=== PATIENT | female | born 1985 | race Caucasian/White ===

== ENCOUNTER 2018-11-11 11:45 | Inpatient (IN) | payer OTHER ==
[2018-11-11] MEDS: ELECTROLYTE-148 SOLN 1,000 ML IV SCH (12:30)
[2018-11-11] MEDS ORDERED: CITRIC ACID/SODIUM CITRATE 30 ML UNIT-DOSE CUP PO ONE (12:35)
--- NOTE | 2018-11-11 12:39 | HP ---
Past Medical History - Primary Care Physician PCP:: Karl Joya - Admission Chief Complaint: 39 weeks, previous c/s , labor , request of repeat c/ s History Source: Patient - Past Medical History ...: 3 ...Para: 2 - Past Surgical History Past Surgical History: Yes: Hx Myomectomy: No Hx Transabdominal Cerclage: No - Smoking History Have you smoked in the past 12 months: No - Alcohol/Substance Use Hx Alcohol Use: No History of Substance Use: reports: None - Social History Usual Living Arrangement: Yes: With Spouse History of Recent Travel: No Review of Systems - Review of Systems Constitutional: reports: No Symptoms Eyes: reports: No Symptoms HENT: reports: No Symptoms Neck: reports: No Symptoms Cardiovascular: reports: No Symptoms Respiratory: reports: No Symptoms Gastrointestinal: reports: No Symptoms Genitourinary: reports: No Symptoms Breasts: reports: No Symptoms Reported Musculoskeletal: reports: No Symptoms Integumentary: reports: No Symptoms Neurological: reports: No Symptoms Endocrine: reports: No Symptoms Hematology/Lymphatic: reports: No Symptoms Psychiatric: reports: No Symptoms Physical Exam - Maternity Constitutional: Yes: Well Nourished, No Distress, Calm Eyes: Yes: WNL, Conjunctiva Clear, EOM Intact HENT: Yes: WNL, Atraumatic, Normocephalic Neck: Yes: WNL, Supple, Trachea Midline Cardiovascular: Yes: WNL, Regular Rate and Rhythm Breast(s): Yes: WNL - Abdominal Exam/OB Fundal Height: 38 Number of Fetuses: Single Presentation: Vertex Contractions: Yes Regularity: Irregular Intensity: Mod/Strong Monitor Mode: External Heart Rate Location: LLQ - Vaginal Exam/OB Speculum Exam: No Station: -3 - Physical Exam Musculoskeletal: Yes: WNL Extremities: Yes: WNL Edema: Yes Edema: LLE: Trace, RLE: Trace Deep Tendon Reflex Grade: Normal +2 ...Motor Strength: WNL Psychiatric: Yes: WNL Hemorrhage Risk Assessment - Risk Factors Medium Risk Factors: Yes: Prior , uterine surgery,or multiple laparotomies Risk Score: 1 Risk Level: Medium Risk Problem List - Problems (1) with 39 completed weeks gestation Code(s): Z3A.39 - 39 WEEKS GESTATION OF (2) Previous section complicating Code(s): O34.219 - MATERNAL CARE FOR UNSP TYPE SCAR FROM PREVIOUS DEL (3) Labor established Code(s): ZUO0725 - Assessment/Plan repeat LST c/s, risks associated with repeat c/s explained
[2018-11-11 13:01] VITALS: BMI 26.4
[2018-11-11] MEDS ORDERED: morphine SULFATE/PF 0.5 MG/ML (2cc Syringe - QUVA) EP ONE (13:13)
[2018-11-11] MEDS ORDERED: ONDANSETRON 4 MG/2 ML VIAL IVPUSH PRN (13:13)
[2018-11-11] MEDS ORDERED: morphine SULFATE/PF 0.5 MG/ML (2cc Syringe - QUVA) ONE (13:23)
[2018-11-11] MEDS ORDERED: BENZOCAINE 28 GM HEMORRHOIDAL OINTMENT PR PRN (13:24)
[2018-11-11] MEDS ORDERED: oxyCODONE HCL 5 MG TABLET PO PRN (13:24)
[2018-11-11] MEDS ORDERED: diphenhydrAMINE HCL 25 MG CAPSULE (FP) PO PRN (13:24)
[2018-11-11] MEDS ORDERED: BENZOCAINE 20% 57 GM BOTTLE TP PRN (13:24)
[2018-11-11] MEDS ORDERED: WITCH HAZEL 50% (TUCKS) 40 PAD/JAR PAD TP PRN (13:24)
[2018-11-11] MEDS ORDERED: METHYLERGONOVINE MALEATE 0.2 MG/1 ML AMP IM PRN (13:24)
[2018-11-11] MEDS ORDERED: ceFAZolin SODIUM 1 GM VIAL ONE (13:24)
[2018-11-11] MEDS ORDERED: OXYTOCIN 20 UNITS in 0.9% NS 20 UNIT/1,000 ML INFUS.BAG IV SCH (13:30)
[2018-11-11] MEDS ORDERED: OXYTOCIN 10 UNITS/ML VIAL ONE ×2 (13:48→13:49)
--- NOTE | 2018-11-11 14:29 | SURG ---
Surgery Photo Engraver Note Photo Engraver: Layo Salmon PA-C Date of Service: 11/11/18 Diagnosis: 39 weeks gravid uterus, previous c/s , in labor, request repeat Procedure: section I was present for the entirety of the operative procedure. For further detail, please refer to operative report. Visit type - New patient This patient is new to me today: Yes Date on this admission: 11/11/18
--- NOTE | 2018-11-11 14:50 | OP ---
Operative Note - Note: Operative Date: 11/11/18 Pre-Operative Diagnosis: 39 weeks, labor, previous c/s Operation: repeat LST c/s Findings: live baby bor , 9/9 , ROT, cord around neck once, clear fluid Surgeon: Karl Joya Carpet Installation Specialist: Layo Salmon Anesthesiologist/SECURITY ADMINISTRATOR: Hardeep Granados Anesthesia: Spinal Specimens Removed: placenta Estimated Blood Loss (mls): 500 Drains & Tubes with Location: kahn Blood Volume Replaced (mls): 0 Operative Report Dictated: Yes
[2018-11-11] MEDS ORDERED: OXYTOCIN 20 UNITS in 0.9% NS 20 UNIT/1,000 ML INFUS.BAG IV ONE (14:52)
[2018-11-11] MEDS ORDERED: IBUPROFEN 800 MG/8 ML IJ IVPB ONE (16:00)
[2018-11-11] MEDS: IBUPROFEN 800 MG/8 ML IJ IVPB PRN (16:06)
[2018-11-11] MEDS: CEFAZOLIN 1 GM/D5W 1 GM/50 ML BAG IVPB SCH (17:55)
[2018-11-12] MEDS: CEFAZOLIN 1 GM/D5W 1 GM/50 ML BAG IVPB SCH (01:04)
[2018-11-12] MEDS: IBUPROFEN 800 MG/8 ML IJ IVPB PRN (06:13)
[2018-11-12 07:14] LABS: BASO % 0.2 % (0-2.0); EOS % 0.3 % (0-4.5); HEMATOCRIT 37.1 % (32.4-45.2); HEMOGLOBIN 12.6 GM/dL (10.7-15.3); LYMPH % 9.5 % (8-40); MCH 32.3 pg (25.7-33.7); MCHC 33.9 g/dl (32.0-36.0); MEAN CELL VOLUME 95.3 fl (80-96); MEAN PLT VOLUME 8.3 fl (7.5-11.1); MONO % 5.4 % (3.8-10.2); NEUT % 84.6 % (42.8-82.8); PLATELET COUNT 143 K/MM3 (134-434); RBC 3.89 M/mm3 (3.60-5.2); RDW 13.2 % (11.6-15.6); WHITE BLOOD COUNT 12.4 K/mm3 (4.0-10.0)
--- NOTE | 2018-11-12 07:17 | PN ---
Post Progress Note - Subjective Subjective: c/o pain scale 6/10 not voided yet after kahn is taken out Post Day: 1 Type of Delivery: Repeat C/S Vital Signs: Vital Signs Temperature 97.7 F 11/12/18 06:00 Pulse Rate 89 11/12/18 06:00 Respiratory Rate 18 11/12/18 06:00 Blood Pressure 101/64 11/12/18 06:00 O2 Sat by Pulse Oximetry (%) 100 11/11/18 16:45 Breast Exam: Yes: Soft, Other (BF). No: Engorged Uterus: Yes: Fundus Firm, Fundus below umbilicus, Non-tender Incision: Yes: Dressing dry and intact. No: Oozing Abdomen/GI: Yes: Abdomen soft (BS active ), Tolerating PO (clear fluids). No: Abdominal Distention, Tender, Passing flatus Lochia: Yes: Rubra Lochia, amount: Moderate Extremities: Yes: Calves non-tender (scd in situ ) Perineum: Yes: Intact Activity: Other (not oob yet) Other Findings, Remarks: RS cta i/o 1300/1700 ml Problem List - Problems (1) Status post section routine follow-up Code(s): Z39.2 - ENCOUNTER FOR ROUTINE FOLLOW-UP; Z98.891 - HISTORY OF UTERINE SCAR FROM PREVIOUS SURGERY Assessment/Plan pod #1 rc/section stable Plan today po cbc pending ct po care encourage po fluids, ambulation, deep breathing ex
[2018-11-12] MEDS: ENOXAPARIN NA (PORCINE) 40 MG/0.4 ML DISP.SYRIN SQ SCH (09:21)
--- NOTE | 2018-11-12 10:42 | PN ---
Progress Note (short form) - Note Progress Note: Anesthesia pain Pt seen and exmained S:Alert and awake, comfortable O: Vital Signs Temperature 97.7 F 11/12/18 06:00 Pulse Rate 89 11/12/18 06:00 Respiratory Rate 18 11/12/18 08:00 Blood Pressure 101/64 11/12/18 06:00 O2 Sat by Pulse Oximetry (%) 100 11/11/18 16:45 CBC, BMP 11/12/18 06:49 A/P: Current Active Problems Labor established (Acute) with 39 completed weeks gestation (Acute) Previous section complicating (Acute) Status post section routine follow-up (Acute) s/p c section Doing well post op Continue current care Ganesh Ortiz MD
[2018-11-12] MEDS ORDERED: BISACODYL 10 MG SUPP.RECT RC PRN (13:24)
[2018-11-12] MEDS: IBUPROFEN 600 MG TABLET (FP) PO PRN ×2 (16:13→23:03)
[2018-11-12] MEDS: SIMETHICONE 80 MG TAB.CHEW (FP) PO PRN ×2 (16:13→23:03)
[2018-11-12] MEDS: oxyCODONE HCL 5 MG TABLET PO PRN ×2 (16:14→23:04)
--- NOTE | 2018-11-12 18:44 | OP ---
DATE OF OPERATION: 11/11/2018 PREOPERATIVE DIAGNOSIS: 39 weeks, 2 previous sections, labor and heart rate category 2, for repeat section. POSTOPERATIVE DIAGNOSIS: 39 weeks, 2 previous sections, labor and heart rate category 2, for repeat section. PROCEDURE: Repeat low segment transverse section. SURGEON: Malathi Hutchins M.D. SEAT INSTALLER: Jennie Pulliam ANESTHESIA: Spinal. ANESTHESIOLOGIST: Hardeep Granados M.D. ESTIMATED BLOOD LOSS: 500 mL. FINDINGS: Live baby boy, ROT position, cord around the neck, Apgars 9 and 9. OPERATION: Patient was taken to operating room under good spinal anesthesia. Abdomen and perineum were prepped and draped. Pfannenstiel abdominal skin incision was made. Abdominal wall was cut layer by layer until the peritoneum was exposed and incised. Upon entering the abdominal cavity, the lower uterine segment was identified, and uterovesical fold of the peritoneum was established. The bladder was pushed down. Then with the lower blade of the Jen retractor in the pelvis, a low transverse incision was made. The incision extended laterally. Amniotic sac was entered. Clear fluid. Head delivered. Nasopharynx was suctioned. Cord around the neck x1 reduced. A live baby boy was delivered without any difficulty. Placenta was delivered manually. Uterine cavity was cleaned of all remaining tissue. Uterine incision was closed in 2 layers, the 1st layer with 0 Biosyn continuous suture, the 2nd layer with 0 Biosyn imbricating the 1st layer. Bladder flap was closed with 0 Biosyn continuous suture. Both tubes and ovaries were checked and were normal. No active bleeding was seen. Then abdomen and pelvic cavity several times irrigated, and then peritoneum was closed with 0 Biosyn continuous suture. Muscles were brought together interrupted suture with 0 Biosyn. Fascia was closed with 0 Biosyn continuous sutures. Subcutaneous fat with interrupted sutures 3-0 Vicryl, and the skin was closed with 4-0 Vicryl subcuticular continuous suture. The patient tolerated the procedure well and left the OR in good condition. MALATHI HUTCHINS M.D. [id number]
[2018-11-12] MEDS: ELECTROLYTE-148 SOLN 1,000 ML IV SCH (19:43)
[2018-11-12] MEDS: DEXTROSE 5%-LACTATED RINGERS 1,000 ML IV SCH (19:43)
[2018-11-13] MEDS: IBUPROFEN 600 MG TABLET (FP) PO PRN ×2 (05:29→12:50)
[2018-11-13] MEDS: SIMETHICONE 80 MG TAB.CHEW (FP) PO PRN ×2 (05:29→12:51)
[2018-11-13] MEDS: oxyCODONE HCL 5 MG TABLET PO PRN ×2 (05:30→12:51)
--- NOTE | 2018-11-13 08:33 | DS ---
Physical Examination Vital Signs: Vital Signs Temperature 98.0 F 11/12/18 21:53 Pulse Rate 101 H 11/12/18 21:53 Respiratory Rate 18 11/12/18 21:53 Blood Pressure 107/67 11/12/18 21:53 O2 Sat by Pulse Oximetry (%) 100 11/11/18 16:45 Findings/Remarks: Patient is doing well, ambulating, breast feeding, voiding, tolerating PO, requesting discharge home today Constitutional: Yes: Calm Eyes: Yes: WNL HENT: Yes: Atraumatic Neck: Yes: Supple Cardiovascular: Yes: Regular Rate and Rhythm Respiratory: Yes: Regular Gastrointestinal: Yes: Soft ...Rectal Exam: Yes: Deferred Renal/: Yes: Other Breast(s): Yes: Other Musculoskeletal: Yes: WNL Extremities: Yes: WNL Edema: No Integumentary: Yes: WNL Wound/Incision: Yes: Well Approximated, Sutures Intact Neurological: Yes: Alert, Oriented ...Motor Strength: WNL Psychiatric: Yes: Alert, Oriented Labs: CBC, BMP 11/12/18 06:49 Discharge Summary Reason For Visit: REPEAT Current Active Problems Labor established (Acute) with 39 completed weeks gestation (Acute) Previous section complicating (Acute) Status post section routine follow-up (Acute) Procedures: Principal: RCS Hospital Course: uncomplicated and patient requesting discharge on POD # 2 Condition: Stable - Instructions Diet, Activity, Other Instructions: /PP precautions discussed. Referrals: Robert York MD [Staff Physician] - Disposition: HOME - Home Medications Comprehensive Discharge Medication List: Ambulatory Orders Prenat 115/Iron Fum/Folic/Dss [ 19 Tablet] 1 each PO DAILY 11/11/18 Docusate Sodium [Colace] 100 mg PO BID 7 Days capsule MDD 2 11/13/18 Ibuprofen 600 mg PO Q6H PRN #30 tablet MDD 5 11/13/18 Oxycodone HCl/Acetaminophen [Percocet 5-325 mg Tablet -] 1 tab PO Q6H PRN #20 tab MDD 5 11/13/18
[2018-11-13] MEDS: ENOXAPARIN NA (PORCINE) 40 MG/0.4 ML DISP.SYRIN SQ SCH (09:28)
[2018-11-13 10:55] VITALS: BP 125/81; PULSE 73; TEMP 98.2
[2018-11-13] MEDS ORDERED: SENNOSIDES/DOCUSATE COMBO (SENNA PLUS) TABLET (UD) PO PRN (22:00)
--- NOTE | 2018-11-14 14:20 | PATH ---
Surgical Pathology Report Patient Name: SHANI LOWE [facility]. Rec. #: [id number] /Age/Gender: 1985 (Age: 33) / F Account: [id number] Location: [facility] OBS/PAN HELPER Taken: 11/10/2018 Received: 11/12/2018 Reported: 11/14/2018 Physicians: Karl Joya M.D. Specimen(s) Received PLACENTA Clinical History , 39.1 weeks x2 Final Diagnosis PLACENTA: THIRD TRIMESTER PLACENTA WITH ACUTE CHORIOAMNIONITIS. TRIVASCULAR CORD. Electronically Signed Toyin Marinelli M.D. Gross Description The specimen is received fresh labeled placenta and is a 380 gram, 16 x16 x 2.2cm. placenta with attached membranes and umbilical cord. The attached membranes are glistening, translucent, and insert marginally. The umbilical cord measures 25 cm. in length and averages 1.3 cm. in diameter. The cord inserts centrally, 5 centimeter to the nearest margin. No true knots or strictures are identified. Cut surface of the umbilical cord reveals 3 vessels. Sectioning reveals red-brown, spongy parenchyma. No lesions are identified. [employer] sections are submitted in three cassettes as follows: 1- membrane rolls and umbilical cord; 2-3- full thickness sections of placenta KWS/11/12/2018 sulki/11/12/2018
== END 2018-11-13 15:25 | disposition home or self-care (01) | DRG 540 ==
LOC: JDEL 11:45 → JLDR 12:30 → J3W 16:38
PROVIDERS: ADMIT Obstetrics & Gynecology; ATTEND Obstetrics & Gynecology
PROC: 10D00Z1 Extraction of Products of Conception, Low, Open Approach (ICD-10-PCS; principal; 2018-11-11)
DX: O34.211 Maternal care for low transverse scar from previous cesarean delivery (principal); O69.81X0 Labor and delivery complicated by cord around neck, without compression, not applicable or unspecified; Z3A.39 39 weeks gestation of pregnancy; Z37.0 Single live birth
CPT/HCPCS: 36415; 36600; 80053; 82803; 85025; 86850; 86900; 86901; 88307-TC

== ENCOUNTER 2021-12-06 08:42 | Inpatient (IN) | payer OTHER ==
[2021-12-06] MEDS ORDERED: ELECTROLYTE-148 SOLN 500 ML IV ONE (09:14)
[2021-12-06] MEDS ORDERED: CITRIC ACID/SODIUM CITRATE 30 ML UNIT-DOSE CUP PO ONE (09:14)
[2021-12-06] MEDS ORDERED: ELECTROLYTE-148 SOLN 1,000 ML IV SCH (09:15)
[2021-12-06 09:37] VITALS: BMI 28.5
[2021-12-06] MEDS ORDERED: IBUPROFEN 800 MG/8 ML IJ IVPB PRN (10:00)
[2021-12-06] MEDS ORDERED: IBUPROFEN 600 MG TABLET (FP) PO PRN (10:00)
[2021-12-06] MEDS ORDERED: ACETAMINOPHEN 325 MG TABLET (FP) PO PRN (10:00)
[2021-12-06] MEDS ORDERED: OXYTOCIN 20 UNITS in 0.9% NS 20 UNIT/1,000 ML INFUS.BAG IV ONE (10:26)
[2021-12-06] MEDS ORDERED: OXYTOCIN 30 UNITS in 0.9% NS 30 UNIT/500 ML INFUS.BAG IVPB ONE (10:30)
[2021-12-06] MEDS ORDERED: ceFAZolin SODIUM 1 GM VIAL ONE (10:32)
[2021-12-06] MEDS ORDERED: morphine SULFATE/PF 1 MG/2 ML (2cc Syringe - QUVA) ONE (10:56)
[2021-12-06] MEDS ORDERED: morphine SULFATE/PF 1 MG/2 ML (2cc Syringe - QUVA) IT ONE (11:09)
[2021-12-06] MEDS ORDERED: ONDANSETRON 4 MG/2 ML VIAL ONE (11:15)
[2021-12-06] MEDS ORDERED: METOCLOPRAMIDE HCL INJECTION 10 MG/2 ML VIAL ONE (11:15)
[2021-12-06] MEDS ORDERED: KETOROLAC TROMETHAMINE 30 MG/1 ML VIAL ONE (11:20)
[2021-12-06] MEDS: OXYTOCIN 20 UNITS in 0.9% NS 20 UNIT/1,000 ML INFUS.BAG IV SCH ×2 (12:15→19:53)
[2021-12-06] MEDS ORDERED: ONDANSETRON 4 MG/2 ML VIAL IVPUSH PRN (12:15)
[2021-12-06] MEDS ORDERED: METHYLERGONOVINE MALEATE 0.2 MG/1 ML AMP IM ONE (14:30)
[2021-12-07] MEDS: SIMETHICONE 80 MG TAB.CHEW (FP) PO PRN ×2 (06:07→09:58)
[2021-12-07] MEDS: oxyCODONE HCL 5 MG TABLET PO PRN ×2 (06:07→20:33)
[2021-12-07 08:46] LABS: BASO % 0.2 % (0-2.0); EOS % 0.2 % (0-4.5); HEMATOCRIT 31.3 % (32.4-45.2); HEMOGLOBIN 10.7 GM/dL (10.7-15.3); MCH 32.5 pg (25.7-33.7); MCHC 34.1 g/dl (32.0-36.0); MEAN CELL VOLUME 95.2 fl (80-96); MEAN PLT VOLUME 7.9 fl (7.5-11.1); MONO % 4.6 % (3.8-10.2); PLATELET COUNT 152 10^3/uL (134-434); RBC 3.29 M/mm3 (3.60-5.2); RDW 13.7 % (11.6-15.6); WHITE BLOOD COUNT 13.5 K/mm3 (4.0-10.0)
[2021-12-07] MEDS ORDERED: BISACODYL 10 MG SUPP.RECT RC PRN (10:00)
[2021-12-07] MEDS: OXYTOCIN 20 UNITS in 0.9% NS 20 UNIT/1,000 ML INFUS.BAG IV SCH (13:14)
[2021-12-08] MEDS: oxyCODONE HCL 5 MG TABLET PO PRN ×4 (00:28→21:24)
[2021-12-08] MEDS: SIMETHICONE 80 MG TAB.CHEW (FP) PO PRN ×3 (08:30→21:24)
[2021-12-09] MEDS: oxyCODONE HCL 5 MG TABLET PO PRN ×2 (02:58→08:20)
[2021-12-09] MEDS: SIMETHICONE 80 MG TAB.CHEW (FP) PO PRN ×2 (02:58→08:20)
[2021-12-09 08:04] VITALS: BP 112/80; PULSE 84; RESP 20; TEMP 98.4
[2021-12-09 08:40] LABS: BASO % 0.2 % (0-2.0); EOS % 1.4 % (0-4.5); HEMOGLOBIN 10.4 GM/dL (10.7-15.3); LYMPH % 16.7 % (8-40); MCHC 34.5 g/dl (32.0-36.0); MEAN CELL VOLUME 95.6 fl (80-96); MEAN PLT VOLUME 7.3 fl (7.5-11.1); MONO % 5.9 % (3.8-10.2); NEUT % 75.8 % (42.8-82.8); PLATELET COUNT 160 10^3/uL (134-434); RBC 3.14 M/mm3 (3.60-5.2); RDW 13.7 % (11.6-15.6); WHITE BLOOD COUNT 8.5 K/mm3 (4.0-10.0)
== END 2021-12-09 13:30 | disposition home or self-care (01) | DRG 785 ==
LOC: JLDR 08:42 → J3W 15:00
PROVIDERS: ADMIT Student in an Organized Health Care Education/Training Program; ATTEND Student in an Organized Health Care Education/Training Program
PROC: 10D00Z1 Extraction of Products of Conception, Low, Open Approach (ICD-10-PCS; principal; 2021-12-06)
PROC: 0UT70ZZ Resection of Bilateral Fallopian Tubes, Open Approach (ICD-10-PCS; 2021-12-06)
DX: O34.211 Maternal care for low transverse scar from previous cesarean delivery (principal); N73.6 Female pelvic peritoneal adhesions (postinfective); Z30.2 Encounter for sterilization; Z3A.39 39 weeks gestation of pregnancy; Z37.0 Single live birth
CPT/HCPCS: 36415; 85025; 88305-TC; 88307-TC

== ENCOUNTER 2023-01-18 01:58 | Emergency (ER) | payer OTHER ==
[2023-01-18 02:09] VITALS: BP 121/73; PULSE 80; RESP 18; TEMP 97.9; BMI 26.4
[2023-01-18] MEDS ORDERED: ACETAMINOPHEN 1000 MG/100 ML BAG IVPB ONE (03:01)
[2023-01-18] MEDS ORDERED: SODIUM CHLORIDE 0.9% 500 ML INFUS.BAG IV ONE (03:01)
[2023-01-18] MEDS ORDERED: ONDANSETRON 4 MG/2 ML VIAL IVPUSH ONE (03:01)
[2023-01-18] MEDS ORDERED: FAMOTIDINE 20 MG/50 ML IVPB 20 MG/50 ML MG IVPB ONE ×2 (03:01→03:21)
[2023-01-18] MEDS ORDERED: ONDANSETRON 4 MG/2 ML VIAL ONE (03:21)
[2023-01-18] MEDS ORDERED: ACETAMINOPHEN INJECTION 100 ML IVPB ONE (03:21)
[2023-01-18 03:48] LABS: BASO % 0.5 % (0-2.0); EOS % 0.2 % (0-4.5); HEMATOCRIT 43.7 % (32.4-45.2); HEMOGLOBIN 15.1 GM/dL (10.7-15.3); LYMPH % 26.4 % (8-40); MCH 30.7 pg (25.7-33.7); MCHC 34.4 g/dl (32.0-36.0); MEAN CELL VOLUME 89.2 fl (80-96); MEAN PLT VOLUME 8.7 fl (7.5-11.1); MONO % 5.5 % (3.8-10.2); NEUT % 67.4 % (42.8-82.8); PLATELET COUNT 260 10^3/uL (134-434); RDW 12.9 % (11.6-15.6)
[2023-01-18 03:55] LABS: INR 1.01 (0.83-1.09); PROTHROMBIN TIME (PATIENT) 11.7 SEC (9.7-13.0)
[2023-01-18 03:58] LABS: ACTIVATED PTT 31.3 SECONDS (25.2-36.5)
[2023-01-18 04:01] LABS: URINE APPEARANCE CLEAR; URINE BILIRUBIN NEGATIVE (NEGATIVE); URINE COLOR YELLOW; URINE GLUCOSE (UA) NEGATIVE (NEGATIVE); URINE KETONE 2+ (NEGATIVE); URINE LEUK ESTERASE NEGATIVE (NEGATIVE); URINE NITRITE NEGATIVE (NEGATIVE); URINE PROTEIN NEGATIVE (NEGATIVE); URINE UROBILINOGEN 0.2 mg/dL (0.2-1.0)
[2023-01-18 04:20] LABS: CALCIUM 8.8 mg/dL (8.5-10.1)
[2023-01-18 04:21] LABS: ALBUMIN 4.1 g/dl (3.4-5.0); BLOOD UREA NITROGEN 6.7 mg/dL (7-18)
[2023-01-18 04:23] LABS: CREATININE 0.7 mg/dL (0.55-1.3)
[2023-01-18 04:26] LABS: BILIRUBIN,TOTAL 1.4 mg/dL (0.2-1); TOT PROT 7.3 g/dl (6.4-8.2)
[2023-01-18] MEDS ORDERED: KETOROLAC TROMETHAMINE 15 MG/ML VIAL IVPUSH ONE (04:34)
[2023-01-18] MEDS ORDERED: KETOROLAC TROMETHAMINE 15 MG/ML VIAL ONE (04:49)
[2023-01-18] MEDS ORDERED: SODIUM CHLORIDE 0.9% 1000 ML INFUS.BAG IV ONE (08:13)
[2023-01-18] MEDS ORDERED: DICYCLOMINE HCL 10 MG CAPSULE PO ONE (08:51)
[2023-01-18] MEDS ORDERED: DICYCLOMINE HCL 10 MG CAPSULE ONE (09:16)
== END 2023-01-18 10:44 | disposition home or self-care (01) ==
LOC: JER 01:58
PROC: 3E033GC Introduction of Other Therapeutic Substance into Peripheral Vein, Percutaneous Approach (ICD-10-PCS; principal; 2023-01-18)
PROC: 3E033NZ Introduction of Analgesics, Hypnotics, Sedatives into Peripheral Vein, Percutaneous Approach (ICD-10-PCS; 2023-01-18)
PROC: 3E0333Z Introduction of Anti-inflammatory into Peripheral Vein, Percutaneous Approach (ICD-10-PCS; 2023-01-18)
PROC: 3E033GC Introduction of Other Therapeutic Substance into Peripheral Vein, Percutaneous Approach (ICD-10-PCS; 2023-01-18)
PROC: 3E033GC Introduction of Other Therapeutic Substance into Peripheral Vein, Percutaneous Approach (ICD-10-PCS; 2023-01-18)
DX: R10.84 Generalized abdominal pain (principal); R19.7 Diarrhea, unspecified; R11.2 Nausea with vomiting, unspecified
CPT/HCPCS: 36415; 74177-TC; 76705-TC; 80053; 81003; 83690; 84703; 85025; 85610; 85730; 86850; 86870; 86880; 86900; 86901; 86902; 87086; 99285-25

== ENCOUNTER 2023-01-19 01:09 | Emergency (ER) | payer OTHER ==
[2023-01-19 01:15] VITALS: TEMP 98.3; BMI 26.4
[2023-01-19] MEDS ORDERED: KETOROLAC TROMETHAMINE 60 MG/2 ML VIAL IM ONE (01:56)
[2023-01-19] MEDS ORDERED: KETOROLAC TROMETHAMINE 60 MG/2 ML VIAL ONE (01:59)
[2023-01-19] MEDS ORDERED: LACTULOSE 20 GM/30 ML UDC (FOR ORAL USE ONLY) PO ONE ×2 (04:49→05:03)
[2023-01-19] MEDS ORDERED: MAG HYDROX/AL HYDROX/SIMETH 30 ML UNIT-DOSE CUP PO ONE (05:03)
[2023-01-19] MEDS ORDERED: SIMETHICONE 80 MG TAB.CHEW (FP) PO ONE (05:03)
[2023-01-19] MEDS ORDERED: SIMETHICONE 80 MG TAB.CHEW (FP) ONE (06:06)
[2023-01-19] MEDS ORDERED: LACTULOSE 20 GM/30 ML UDC (FOR ORAL USE ONLY) ONE (06:06)
[2023-01-19] MEDS ORDERED: MAG HYDROX/AL HYDROX/SIMETH 30 ML UNIT-DOSE CUP ONE (06:06)
[2023-01-19 06:52] VITALS: BP 122/76; PULSE 59; RESP 18
[2023-01-19] MEDS ORDERED: ACETAMINOPHEN 500 MG TABLET (FP) PO ONE (07:50)
[2023-01-19] MEDS ORDERED: ACETAMINOPHEN 500 MG TABLET (FP) ONE (07:58)
== END 2023-01-19 08:47 | disposition home or self-care (01) ==
LOC: JER 01:09
PROC: 3E0233Z Introduction of Anti-inflammatory into Muscle, Percutaneous Approach (ICD-10-PCS; principal; 2023-01-19)
DX: R10.33 Periumbilical pain (principal); K59.00 Constipation, unspecified; R11.10 Vomiting, unspecified
CPT/HCPCS: 76830-TC; 99284-25

== ENCOUNTER 2023-01-19 23:25 | Inpatient (IN) | payer OTHER ==
[2023-01-19] MEDS ORDERED: SUCRALFATE 1 GM TABLET (FP) PO ONE (23:40)
[2023-01-19] MEDS ORDERED: LIDOCAINE VISCOUS 2% ORAL/TOP 15 ML UNIT-DOSE CUP MM ONE (23:40)
[2023-01-19] MEDS ORDERED: PANTOPRAZOLE SODIUM 40 MG VIAL IVPUSH ONE ×2 (23:40)
[2023-01-19] MEDS ORDERED: MAG HYDROX/AL HYDROX/SIMETH -MYLANTA- ORAL SUSPENSION PO ONE (23:40)
[2023-01-19] MEDS ORDERED: SIMETHICONE 80 MG TAB.CHEW (FP) PO ONE (23:41)
[2023-01-19] MEDS ORDERED: SUCRALFATE 1 GM TABLET (FP) ONE (23:55)
[2023-01-19] MEDS ORDERED: PANTOPRAZOLE SODIUM 40 MG VIAL ONE (23:56)
[2023-01-19] MEDS ORDERED: SIMETHICONE 80 MG TAB.CHEW (FP) ONE (23:56)
[2023-01-19] MEDS ORDERED: MAG HYDROX/AL HYDROX/SIMETH 30 ML UNIT-DOSE CUP ONE (23:56)
[2023-01-19] MEDS ORDERED: LIDOCAINE VISCOUS 2% ORAL/TOP 15 ML UNIT-DOSE CUP ONE (23:56)
[2023-01-20 01:01] LABS: ACTIVATED PTT 28.4 SECONDS (25.2-36.5)
[2023-01-20 01:15] LABS: BASO % 0.4 % (0-2.0); EOS % 0.3 % (0-4.5); HEMOGLOBIN 15.4 GM/dL (10.7-15.3); LYMPH % 30.4 % (8-40); MCH 30.7 pg (25.7-33.7); MCHC 34.3 g/dl (32.0-36.0); MEAN CELL VOLUME 89.3 fl (80-96); MEAN PLT VOLUME 9.6 fl (7.5-11.1); MONO % 7.5 % (3.8-10.2); NEUT % 61.4 % (42.8-82.8); PLATELET COUNT 285 10^3/uL (134-434); RBC 5.04 M/mm3 (3.60-5.2); RDW 12.8 % (11.6-15.6)
[2023-01-20 01:33] LABS: POTASSIUM 3.9 mmol/L (3.5-5.1)
[2023-01-20 01:37] LABS: ALBUMIN 4.3 g/dl (3.4-5.0); BLOOD UREA NITROGEN 7.3 mg/dL (7-18); CALCIUM 9.1 mg/dL (8.5-10.1)
[2023-01-20 01:40] LABS: CREATININE 0.7 mg/dL (0.55-1.3)
[2023-01-20 01:42] LABS: BILIRUBIN,TOTAL 1.8 mg/dL (0.2-1); TOT PROT 7.9 g/dl (6.4-8.2)
[2023-01-20] MEDS ORDERED: morphine CARPU-JECT 4 MG/1 ML DISP.SYRIN IVPUSH ONE (01:42)
[2023-01-20] MEDS ORDERED: morphine SULFATE 4 MG/ML VIAL ONE (01:44)
[2023-01-20 01:58] LABS: INR 1.03 (0.83-1.09); PROTHROMBIN TIME (PATIENT) 11.9 SEC (9.7-13.0)
[2023-01-20] MEDS ORDERED: KETOROLAC TROMETHAMINE 15 MG/ML VIAL IVPUSH PRN (04:35)
[2023-01-20] MEDS: SODIUM CHLORIDE 1,000 ML IV SCH (05:03)
[2023-01-20] MEDS ORDERED: ONDANSETRON *ODT* 4 MG TABLET SL PRN (05:23)
[2023-01-20 06:40] LABS: HEMATOCRIT 43.5 % (32.4-45.2); HEMOGLOBIN 14.2 GM/dL (10.7-15.3); MCH 29.9 pg (25.7-33.7); MCHC 32.7 g/dl (32.0-36.0); MEAN CELL VOLUME 91.4 fl (80-96); MEAN PLT VOLUME 9.1 fl (7.5-11.1); PLATELET COUNT 255 10^3/uL (134-434); RBC 4.76 M/mm3 (3.60-5.2); RDW 12.5 % (11.6-15.6)
[2023-01-20] MEDS ORDERED: KETOROLAC TROMETHAMINE 15 MG/ML VIAL ONE (06:51)
[2023-01-20 06:55] LABS: POTASSIUM 4.3 mmol/L (3.5-5.1)
[2023-01-20 06:58] LABS: ALBUMIN 3.8 g/dl (3.4-5.0)
[2023-01-20 06:59] LABS: CALCIUM 8.6 mg/dL (8.5-10.1)
[2023-01-20 07:00] LABS: BLOOD UREA NITROGEN 7.1 mg/dL (7-18); MAGNESIUM 2.3 mg/dL (1.8-2.4)
[2023-01-20 07:01] LABS: BILIRUBIN,DIRECT 0.3 mg/dL (0.0-0.2)
[2023-01-20 07:03] LABS: BILIRUBIN,TOTAL 1.6 mg/dL (0.2-1); CREATININE 0.7 mg/dL (0.55-1.3); TOT PROT 6.9 g/dl (6.4-8.2)
[2023-01-20 08:03] LABS: BILIRUBIN,DIRECT 0.3 mg/dL (0.0-0.2)
[2023-01-20 08:46] LABS: URINE APPEARANCE CLEAR; URINE BILIRUBIN NEGATIVE (NEGATIVE); URINE COLOR YELLOW; URINE GLUCOSE (UA) NEGATIVE (NEGATIVE); URINE KETONE 2+ (NEGATIVE); URINE LEUK ESTERASE NEGATIVE (NEGATIVE); URINE NITRITE NEGATIVE (NEGATIVE); URINE PROTEIN TRACE (NEGATIVE); URINE UROBILINOGEN 0.2 mg/dL (0.2-1.0)
[2023-01-20] MEDS ORDERED: ENOXAPARIN NA (PORCINE) 40 MG/0.4 ML DISP.SYRIN SQ ONE (08:48)
[2023-01-20] MEDS ORDERED: PANTOPRAZOLE SODIUM 40 MG/100 ML BAG IVPB ONE (08:48)
[2023-01-20 08:57] LABS: EPI CELLS 24 /uL (0-25.1); HYALINE CASTS 5 /uL (0-3.1); URINE BACTERIA 155 /uL (0-1359); URINE RBC 4 /uL (0-23.9); URINE WBC 4 /uL (0-25.8)
[2023-01-20] MEDS: PANTOPRAZOLE SODIUM 40 MG VIAL IVPUSH SCH (09:02)
[2023-01-20] MEDS: ENOXAPARIN NA (PORCINE) 40 MG/0.4 ML DISP.SYRIN SQ SCH (09:02)
[2023-01-20 09:23] LABS: COCAINE, UR NEGATIVE (NEGATIVE); URINE AMPHETAMINES NEGATIVE (NEGATIVE)
[2023-01-20 09:24] LABS: METHADONE, UR NEGATIVE (NEGATIVE); PHENCYCLIDINE,URINE NEGATIVE (NEGATIVE); URINE BARBITURATES NEGATIVE (NEGATIVE); URINE BENZODIAZEPINES NEGATIVE (NEGATIVE)
[2023-01-20 09:27] LABS: OPIATES, URI POSITIVE (NEGATIVE)
[2023-01-20 12:46] LABS: AMYLASE 83 U/L (25-115); LIPASE 236 U/L (73-393)
[2023-01-21] MEDS ORDERED: ACETAMINOPHEN INJECTION 100 ML IVPB ONE (06:04)
[2023-01-21] MEDS: SODIUM CHLORIDE 1,000 ML IV SCH (06:07)
[2023-01-21] MEDS: ACETAMINOPHEN 1000 MG/100 ML BAG IVPB PRN (06:08)
[2023-01-21 08:29] LABS: BASO % 0.4 % (0-2.0); EOS % 0.3 % (0-4.5); HEMATOCRIT 40.7 % (32.4-45.2); HEMOGLOBIN 13.9 GM/dL (10.7-15.3); LYMPH % 26.4 % (8-40); MCHC 34.2 g/dl (32.0-36.0); MEAN CELL VOLUME 90.8 fl (80-96); MONO % 5.5 % (3.8-10.2); NEUT % 67.4 % (42.8-82.8); PLATELET COUNT 207 10^3/uL (134-434); RBC 4.48 M/mm3 (3.60-5.2); RDW 12.9 % (11.6-15.6); WHITE BLOOD COUNT 6.4 K/mm3 (4.0-10.0)
[2023-01-21 08:50] LABS: POTASSIUM 3.9 mmol/L (3.5-5.1)
[2023-01-21 09:05] LABS: BLOOD UREA NITROGEN 16.5 mg/dL (7-18); CALCIUM 8.2 mg/dL (8.5-10.1)
[2023-01-21 09:06] LABS: ALBUMIN 3.5 g/dl (3.4-5.0)
[2023-01-21 09:09] LABS: CREATININE 0.7 mg/dL (0.55-1.3)
[2023-01-21 09:10] LABS: BILIRUBIN,TOTAL 1.7 mg/dL (0.2-1); TOT PROT 6.6 g/dl (6.4-8.2)
[2023-01-21] MEDS ORDERED: ENOXAPARIN NA (PORCINE) 40 MG/0.4 ML DISP.SYRIN SQ ONE (09:16)
[2023-01-21] MEDS: PANTOPRAZOLE SODIUM 40 MG VIAL IVPUSH SCH (09:27)
[2023-01-21] MEDS: ENOXAPARIN NA (PORCINE) 40 MG/0.4 ML DISP.SYRIN SQ SCH (09:27)
[2023-01-21] MEDS ORDERED: morphine SULFATE 4 MG/ML VIAL IVPUSH PRN (10:38)
[2023-01-21] MEDS ORDERED: ONDANSETRON *ODT* 4 MG TABLET ONE (19:32)
[2023-01-21 20:53] VITALS: BMI 27.0
[2023-01-22 09:42] LABS: POTASSIUM 4.1 mmol/L (3.5-5.1)
[2023-01-22 09:49] LABS: CALCIUM 8.5 mg/dL (8.5-10.1)
[2023-01-22 09:50] LABS: ALBUMIN 3.6 g/dl (3.4-5.0); BLOOD UREA NITROGEN 10.9 mg/dL (7-18)
[2023-01-22 09:53] LABS: CREATININE 0.7 mg/dL (0.55-1.3)
[2023-01-22 09:54] LABS: BILIRUBIN,TOTAL 1.8 mg/dL (0.2-1); TOT PROT 6.8 g/dl (6.4-8.2)
[2023-01-22] MEDS: PANTOPRAZOLE SODIUM 40 MG VIAL IVPUSH SCH (10:53)
[2023-01-22 14:49] VITALS: RESP 18
[2023-01-22] MEDS ORDERED: FLUCONAZOLE 150 MG TABLET PO ONE (21:09)
[2023-01-23] MEDS: PANTOPRAZOLE SODIUM 40 MG VIAL IVPUSH SCH (09:11)
[2023-01-23 10:25] LABS: HEMATOCRIT 40.6 % (32.4-45.2); MCH 30.6 pg (25.7-33.7); MCHC 34.4 g/dl (32.0-36.0); MEAN CELL VOLUME 88.9 fl (80-96); MEAN PLT VOLUME 8.8 fl (7.5-11.1); PLATELET COUNT 214 10^3/uL (134-434); RBC 4.56 M/mm3 (3.60-5.2)
[2023-01-23 10:46] LABS: POTASSIUM 3.7 mmol/L (3.5-5.1)
[2023-01-23 11:26] LABS: ALBUMIN 3.6 g/dl (3.4-5.0)
[2023-01-23 11:27] LABS: TOT PROT 6.7 g/dl (6.4-8.2)
[2023-01-23 11:29] LABS: BLOOD UREA NITROGEN 9.8 mg/dL (7-18); CALCIUM 8.5 mg/dL (8.5-10.1); CREATININE 0.6 mg/dL (0.55-1.3)
[2023-01-23 11:31] LABS: BILIRUBIN,TOTAL 1.6 mg/dL (0.2-1)
[2023-01-23] MEDS: ACETAMINOPHEN 1000 MG/100 ML BAG IVPB PRN (19:16)
[2023-01-24] MEDS: PANTOPRAZOLE SODIUM 40 MG VIAL IVPUSH SCH (09:47)
[2023-01-24 14:52] VITALS: BP 110/75; PULSE 88; TEMP 98.3
== END 2023-01-24 18:30 | disposition home or self-care (01) | DRG 392 ==
LOC: JER 23:25 → JERBED 01-20 03:41 → UNDOADMOB 01-20 03:41 → INTOOBSV 01-20 03:41 → OBSVTOIN 01-20 03:41 → JERBED 01-20 04:35 → J6S 01-21 20:12
PROVIDERS: ADMIT Internal Medicine; ATTEND Internal Medicine
PROC: 0DB58ZX Excision of Esophagus, Via Natural or Artificial Opening Endoscopic, Diagnostic (ICD-10-PCS; 2023-01-22)
PROC: 0DB98ZZ Excision of Duodenum, Via Natural or Artificial Opening Endoscopic (ICD-10-PCS; 2023-01-22)
PROC: 0DB68ZZ Excision of Stomach, Via Natural or Artificial Opening Endoscopic (ICD-10-PCS; 2023-01-22)
PROC: 0DB98ZX Excision of Duodenum, Via Natural or Artificial Opening Endoscopic, Diagnostic (ICD-10-PCS; principal; 2023-01-22 11:30)
DX: R10.13 Epigastric pain (principal); E80.6 Other disorders of bilirubin metabolism; D64.9 Anemia, unspecified; K21.9 Gastro-esophageal reflux disease without esophagitis; K31.7 Polyp of stomach and duodenum; K44.9 Diaphragmatic hernia without obstruction or gangrene; B37.31 Acute candidiasis of vulva and vagina
CPT/HCPCS: 36415; 74174-TC; 80048; 80053; 80076; 80307; 81003; 82150; 82248; 83605; 83690; 83735; 84100; 84484; 84703; 85025; 85027; 85610; 85730; 86301; 86850; 86870; 86880; 86900; 86901; 86902; 87070; 87205; 87491; 87591; 87661; 93005; 93010; 99285-25; Q0162